=== PATIENT | male | born 1970 | race Caucasian/White ===

== ENCOUNTER 2021-12-03 05:07 | Inpatient (IN) | payer BC, OTHER ==
[~2021-12-03] VITALS: Ht 195.6 cm; Wt 124.9 kg
[~2021-12-03 05:07] MED LIST: LANTUS SQ; METF500T PO; ZES10T PO
[2021-12-03 06:28] LABS: BASOPHILS % (AUTO) 0.2 % (0-1); EOSINOPHILS # (AUTO) 0.5 X10'3 (0-0.9); HEMATOCRIT 38.1 % (42.0-52.0); HEMOGLOBIN 13.4 g/dl (14.0-17.9); LYMPHOCYTES # (AUTO) 1.3 X10'3 (1.1-4.8); LYMPHOCYTES % (AUTO) 13.3 % (21-51); MEAN CORPUSCULAR HEMOGLOBIN 30.1 PG (27.0-31.0); MEAN CORPUSCULAR HGB CONC 35.2 g/dL (33.0-36.5); MEAN CORPUSCULAR VOLUME 85.7 FL (78-98); MEAN PLATELET VOLUME 7.5 FL (7.4-10.4); MONOCYTES # (AUTO) 0.9 X10'3 (0-0.9); NEUTROPHILS # (AUTO) 7.1 X10'3 (1.8-7.7); NEUTROPHILS % (AUTO) 72.5 % (42-75); PLATELET COUNT 262 X10'3 (140-440); RED BLOOD COUNT 4.44 X10'6 (4.70-6.10); RED CELL DISTRIBUTION WIDTH 12.5 % (11.5-14.5); WHITE BLOOD COUNT 9.8 X10'3 (4.5-11.0)
[2021-12-03 06:52] LABS: ALANINE AMINOTRANSFERASE 25 U/L (12-78); ALBUMIN 3.4 G/DL (3.4-5.0); ALBUMIN/GLOBULIN RATIO 0.7 (1.1-1.5); ALKALINE PHOSPHATASE 89 IU/L (46-116); ANION GAP 7 (8-16); ASPARTATE AMINO TRANSFERASE 20 U/L (10-37); BILIRUBIN,TOTAL 0.3 MG/DL (0.1-1.0); BLOOD UREA NITROGEN 22 MG/DL (7-18); BUN/CREATININE RATIO 16.3 (5.4-32.0); CHLORIDE 106 MMOL/L (99-107); CREATININE 1.35 MG/DL (0.60-1.10); GLUCOSE 202 MG/DL (70-104); POTASSIUM 3.9 MMOL/L (3.5-5.1); SODIUM 139 MMOL/L (135-145); eGFR 56 ML/MIN
[2021-12-03] MEDS ORDERED: vancomycin/NS 1 GM ADD-VANTAGE 250 ML IV ONE (08:55)
[2021-12-03] MEDS ORDERED: normal saline 1000ML IV soln IV ONE (08:55)
[2021-12-03] MEDS ORDERED: piperacillin/tazo 3.375gm/50ml 50 ML IV ONE (08:55)
[2021-12-03 09:12] LABS: BASOPHILS % (AUTO) 0.3 % (0-1); EOSINOPHILS # (AUTO) 0.3 X10'3 (0-0.9); EOSINOPHILS % (AUTO) 2.6 % (0-6); HEMATOCRIT 37.2 % (42.0-52.0); HEMOGLOBIN 13.1 g/dl (14.0-17.9); LYMPHOCYTES # (AUTO) 1.2 X10'3 (1.1-4.8); MEAN CORPUSCULAR HEMOGLOBIN 29.9 PG (27.0-31.0); MEAN CORPUSCULAR HGB CONC 35.1 g/dL (33.0-36.5); MEAN CORPUSCULAR VOLUME 85.2 FL (78-98); MEAN PLATELET VOLUME 7.3 FL (7.4-10.4); MONOCYTES # (AUTO) 0.8 X10'3 (0-0.9); MONOCYTES % (AUTO) 6.4 % (2-12); NEUTROPHILS % (AUTO) 80.7 % (42-75); PLATELET COUNT 276 X10'3 (140-440); RED BLOOD COUNT 4.36 X10'6 (4.70-6.10); RED CELL DISTRIBUTION WIDTH 12.5 % (11.5-14.5); WHITE BLOOD COUNT 12.4 X10'3 (4.5-11.0)
[2021-12-03] MEDS ORDERED: HYDROcodone/acetaminophen 10/325mg tab PO PRN (09:30)
[2021-12-03] MEDS ORDERED: mag hydrox/Alum hydrox/simeth 30ml oral suspension PO PRN (09:30)
[2021-12-03] MEDS ORDERED: magnesium hydroxide 30ml (MOM) UD suspension PO PRN (09:30)
[2021-12-03] MEDS ORDERED: HYDROcodone/acetaminophen 5mg/325mg tablet PO PRN (09:30)
[2021-12-03] MEDS ORDERED: dextrose 50%-water 50ml dispensing syringe IV PRN ×2 (09:30)
[2021-12-03] MEDS ORDERED: DEXTROSE 15 GM of carb/4 tabs (each vial/BOTTLE has 4 tablets) PO PRN ×2 (09:30)
[2021-12-03] MEDS ORDERED: insulin Lispro (HumaLOG) vial - multi-dose SQ SCH (09:30)
[2021-12-03] MEDS ORDERED: MESSAGE TO PHARMACY PO ONE (09:30)
[2021-12-03] MEDS ORDERED: ondansetron/PF 4mg/2ml inj IV PRN (09:30)
[2021-12-03] MEDS ORDERED: morphine 2 MG/ML inj. syringe IV PRN ×2 (09:30)
[2021-12-03] MEDS ORDERED: glucagon, human recombinant 1mg kit SUBCUT PRN (09:30)
[2021-12-03] MEDS ORDERED: METF-1203 PO (09:58)
[2021-12-03] MEDS ORDERED: NOVLG SQ (09:58)
[2021-12-03] MEDS ORDERED: LOSA50TA64 PO (09:58)
[2021-12-03] MEDS ORDERED: INSU100V9 SQ (09:58)
[2021-12-03] MEDS ORDERED: SIMV-42 PO (09:58)
[2021-12-03 10:42] LABS: HEMOGLOBIN A1C 8.8 % (4.5-6.2)
--- NOTE | 2021-12-03 12:00 | NUR ---
pt to MRI with tech
[2021-12-03 13:35] VITALS: BP 171/98
[2021-12-03] MEDS: acetaminophen 325mg tablet PO PRN (14:09)
[2021-12-03] MEDS: metroNIDAZOLE-Flagyl 500mg/NS 100 ML IV SCH (16:10)
[2021-12-03 18:00] VITALS: BP 141/76
[2021-12-03 19:00] VITALS: BP 145/95
[2021-12-03] MEDS ORDERED: GADOTERATE MEGLUMINE 7.5 MMOL/15 ML VIAL IV ONE (19:07)
[2021-12-03] MEDS: docusate sod 100mg capsule PO SCH (20:00)
[2021-12-03] MEDS: vancomycin/NS 1 GM ADD-VANTAGE 250 ML IV SCH (20:13)
[2021-12-03] MEDS ORDERED: insulin glargine (Lantus) pen - multi-dose SQ SCH (21:00)
[2021-12-04] MEDS: metroNIDAZOLE-Flagyl 500mg/NS 100 ML IV SCH ×3 (01:29→16:00)
[2021-12-04 05:00] VITALS: BP 136/88
[2021-12-04 06:22] LABS: BASOPHILS % (AUTO) 0.4 % (0-1); EOSINOPHILS # (AUTO) 0.4 X10'3 (0-0.9); EOSINOPHILS % (AUTO) 5.1 % (0-6); HEMATOCRIT 32.9 % (42.0-52.0); HEMOGLOBIN 11.9 g/dl (14.0-17.9); LYMPHOCYTES # (AUTO) 1.2 X10'3 (1.1-4.8); LYMPHOCYTES % (AUTO) 17.1 % (21-51); MEAN CORPUSCULAR VOLUME 85.8 FL (78-98); MEAN PLATELET VOLUME 7.2 FL (7.4-10.4); MONOCYTES # (AUTO) 0.9 X10'3 (0-0.9); MONOCYTES % (AUTO) 11.8 % (2-12); NEUTROPHILS # (AUTO) 4.8 X10'3 (1.8-7.7); NEUTROPHILS % (AUTO) 65.6 % (42-75); PLATELET COUNT 233 X10'3 (140-440); RED BLOOD COUNT 3.84 X10'6 (4.70-6.10); RED CELL DISTRIBUTION WIDTH 12.5 % (11.5-14.5); WHITE BLOOD COUNT 7.3 X10'3 (4.5-11.0)
[2021-12-04 06:35] LABS: ALBUMIN 2.7 G/DL (3.4-5.0); ANION GAP 5 (8-16); BLOOD UREA NITROGEN 15 MG/DL (7-18); BUN/CREATININE RATIO 11.5 (5.4-32.0); CALCIUM 8.6 MG/DL (8.5-10.1); CHLORIDE 110 MMOL/L (99-107); CREATININE 1.31 MG/DL (0.60-1.10); GLUCOSE 150 MG/DL (70-104); SODIUM 141 MMOL/L (135-145); TOTAL CARBON DIOXIDE 26.3 MMOL/L (24-32); eGFR 58 ML/MIN
--- NOTE | 2021-12-04 06:35 | NUR ---
Problems reprioritized. Patient report given, questions answered & plan of care reviewed with Marino DANIELS.
--- NOTE | 2021-12-04 06:38 | NUR ---
Patient in room [facility] 4017. I have received report from DAVION DANIELS and had the opportunity to ask questions and assume patient care.
[2021-12-04 07:09] LABS: MEAN CORPUSCULAR HGB CONC 35.3 g/dL (33.0-36.5)
[2021-12-04] MEDS: acetaminophen 325mg tablet PO PRN (07:10)
[2021-12-04 07:12] VITALS: BP_SYST 136
[2021-12-04] MEDS: docusate sod 100mg capsule PO SCH (07:12)
[2021-12-04] MEDS ORDERED: cefTRIAXone 1g/NS 100ml IVPB 100 ML IV SCH (08:00)
[2021-12-04] MEDS ORDERED: losartan 50mg tablet PO SCH (08:00)
[2021-12-04] MEDS ORDERED: enoxaparin 40mg/0.4ml syringe SUBCUT SCH (08:00)
[2021-12-04] MEDS ORDERED: atorvastatin 10mg tablet PO SCH (08:00)
[2021-12-04] MEDS: vancomycin/NS 1 GM ADD-VANTAGE 250 ML IV SCH (09:15)
--- NOTE | 2021-12-04 09:37 | NUR ---
promotional table spacer PAGER ID: [phone] MESSAGE: [email or web address] [phone]. Requesting Claritin for runny nose thank you
[2021-12-04] MEDS ORDERED: loratadine 10mg tablet PO SCH (14:00)
--- NOTE | 2021-12-04 15:01 | NUR ---
DM Consult: Pt admit DX L great toe cellulitis concern for osteomyelitis, HTN, CKD 3, and hx T2DM current A1C 8.8% on 65 units Lantus HS, sliding scale insulin, and metformin BID at home per EMR. Noted pt has full thickness diabetic ulcer to L great toe per [facility] note. Pt/SO seen by RD for written/verbal DM and verbal high protein diet eds w/ RD contact information provided. Pt reports has had DM diet ed in past politely declines verbal review was agreeable to verbal high protein review. Pt is agreeable to Óscar smoothie BIDBD for wound healing needs; MD notified. PO 100% first carb controlled meal; pt declines further proteins w/ meals as reports adequate portions at this time. LBM 12/03. Will continue to monitor for further nutrition intervention needs this admit. Rec: 1. continue carb controlled diet 2. Óscar smoothie BIDBD for wound healing; pending MD verification in EMR 3. monitor PO trends for additional protein/kcal needs 4. routine bowel care 5. weekly wts Addendum: 12/04/21 at [address] Amended: Links added.
[2021-12-04] MEDS ORDERED: METR-159 PO (15:52)
--- NOTE | 2021-12-04 16:23 | NUR ---
patient refused antibiotic due at 1600, due to discharging home. Antibiotics would not be done infusing in time to meet [facility] infusion
--- NOTE | 2021-12-04 17:09 | NUR ---
patient discharged to home via w/c uniboot applied, piv removed PICC line in place
[2021-12-04] MEDS ORDERED: JUVEN Smoothie Arginine/Glut./Ca2+Bmb (Juven 19.3pkt) 240ml cup PO SCH (17:30)
[2021-12-04] MEDS ORDERED: VANCOMYCIN LEVEL IV ONE (19:30)
== END 2021-12-04 17:05 | disposition home or self-care (01) | DRG 638 ==
LOC: ER 05:08 → ED HOLD 09:31 → ORTHO 4S 13:24
PROVIDERS: ADMIT Internal Medicine; ATTEND Internal Medicine
PROC: 02HV33Z Insertion of Infusion Device into Superior Vena Cava, Percutaneous Approach (ICD-10-PCS; principal; 2021-12-04)
DX: E11.69 Type 2 diabetes mellitus with other specified complication (principal); M86.172 Other acute osteomyelitis, left ankle and foot; M84.478A Pathological fracture, left toe(s), initial encounter for fracture; N18.30 Chronic kidney disease, stage 3 unspecified; L03.032 Cellulitis of left toe; E11.22 Type 2 diabetes mellitus with diabetic chronic kidney disease; E11.42 Type 2 diabetes mellitus with diabetic polyneuropathy; E78.5 Hyperlipidemia, unspecified; I12.9 Hypertensive chronic kidney disease with stage 1 through stage 4 chronic kidney disease, or unspecified chronic kidney disease; Z79.899 Other long term (current) drug therapy
CPT/HCPCS: 36415; 36569; 71045; 73630; 73720; 80048; 80053; 82948; 83036; 83605; 83880; 84145; 85025; 85651; 87040; 87070; 87075; 87081; 93005; 93922; 93926; 99285; A9575; C1751; G0378; J0696; J1650; J1815; J2543; J3370; J3490; J7030